=== PATIENT | female | born 1965 | race Caucasian/White ===

== ENCOUNTER 2019-07-22 08:13 | Emergency (ER) | payer BC ==
--- NOTE | 2019-07-22 09:06 | EDM.PDOC ---
ED HPI GENERAL MEDICAL PROBLEM - General Chief Complaint: Laceration Stated Complaint: HEAD LACERATION Time Seen by Provider: 07/22/19 08:15 Source of Information: Reports: Patient History Limitations: Reports: No Limitations - History of Present Illness INITIAL COMMENTS - FREE TEXT/NARRATIVE: Patient presented to the ED because of a facial injury. She went turkey hunting , and the scope of the gone hit her on the forehead and the right eye. She sustained a laceration over the forehead in between the eyebrows. She also has a subconjunctival hemorrhage on the right eye. she denies having any double or blurry vision. 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 (see below) Other Treatments NOISE ABATEMENT ENGINEER: Systane drops right eye Pain Score (Numeric/FACES): 8 - Related Data Allergies Allergy/AdvReac Type Severity Reaction Status Date / Time No Known Allergies Allergy Verified 07/22/19 08:20 Home Meds: Home Meds Hydrocort/Neomycin/Polymyxin B [Cortisporin Ophth Susp] 2 drop OP Q4H #1 bottle 07/22/19 [Rx] Ibuprofen 800 mg PO Q8H PRN #30 tablet 07/22/19 [Rx] cephALEXin [Keflex] 500 mg PO BID #10 cap 07/22/19 [Rx] Past Medical History Endocrine/Metabolic History: Reports: Hypothyroidism Oncologic (Cancer) History: Reports: Breast - Past Surgical History Female Surgical History: Reports: Mastectomy Endocrine Surgical History: Reports: Thyroidectomy Social & Family History - Family History Family Medical History: Noncontributory - Tobacco Use Smoking Status *Q: Never Smoker Second Hand Smoke Exposure: No - Caffeine Use Caffeine Use: Reports: Coffee - Recreational Drug Use Recreational Drug Use: No ED ROS GENERAL - Review of Systems Review Of Systems: See Below Constitutional: Reports: No Symptoms HEENT: Reports: No Symptoms Respiratory: Reports: No Symptoms Cardiovascular: Reports: No Symptoms Endocrine: Reports: No Symptoms GI/Abdominal: Reports: No Symptoms : Reports: No Symptoms Musculoskeletal: Reports: No Symptoms Skin: Reports: Wound Neurological: Reports: No Symptoms ED EXAM, SKIN/RASH Exam: See Below Exam Limited By: No Limitations General Appearance: Alert, No Apparent Distress Eye Exam: Bilateral Eye: PERRL, Other (right subconjunctival hemorrhage) Ears: Normal External Exam Nose: Normal Inspection Throat/Mouth: Normal Inspection, Normal Lips, Normal Teeth Head: Atraumatic, Normocephalic Neck: Normal Inspection, Supple, Non-Tender, Full Range of Motion Respiratory/Chest: No Respiratory Distress, Lungs Clear, Normal Breath Sounds Cardiovascular: Normal Peripheral Pulses, Regular Rate, Rhythm, No Edema GI/Abdominal: Normal Bowel Sounds, Soft, Non-Tender, No Organomegaly Back Exam: Normal Inspection, Full Range of Motion Extremities: Normal Inspection, Normal Range of Motion Neurological: Alert, Oriented, CN II-XII Intact Skin: Warm, Wound/Incision Location, Skin: Face ED SKIN PROCEDURES - Laceration/Wound Repair Middle Face Distal NVT: Neuro & Vascular Intact Local Anesthesia - Lidocaine (Xylocaine): 1% Plain Local Anesthetic Volume: 2cc Skin Prep: Chlorhexidine (Hibiciens), Providone-Iodine (Betadine) Saline Irrigation (cc's): 3 Exploration/Debridement/Repair: Wound Explored Closed with: Sutures Lac/Wound length In cm: 2.5 Suture Size: 4-0 # of Sutures: 4 Suture Type: Interrupted, Other (cutgut-absorbable) Suture Size: 4-0 Repaired with: Chromic # of Sutures: 5 Course - Vital Signs Text/Narrative:: Tdap Last Recorded V/S: Last Vital Signs Temp 36.6 C 07/22/19 09:28 Pulse 75 07/22/19 09:28 Resp 16 07/22/19 09:28 BP 121/54 L 07/22/19 09:28 Pulse Ox 100 07/22/19 09:28 - Orders/Labs/Meds Meds: Medications Discontinued Medications Generic Name Dose Route Start Last Admin Trade Name Freq PRN Reason Stop Dose Admin Diphtheria/Tetanus/Acell Pertussis 0.5 ml 07/22/19 09:00 07/22/19 09:14 Adacel IM 07/22/19 09:01 0.5 ml .ONCE ONE Administration Departure - Departure Time of Disposition: 09:00 Disposition: Home, Self-Care 01 Condition: Good Clinical Impression: Laceration, Eye injury - Discharge Information Prescriptions: cephALEXin [Keflex] 500 mg PO BID #10 cap Hydrocort/Neomycin/Polymyxin B [Cortisporin Ophth Susp] 2 drop OP Q4H #1 bottle Ibuprofen 800 mg PO Q8H PRN #30 tablet PRN Reason: Pain Instructions: Laceration Care, Adult, Subconjunctival Hemorrhage Referrals: Bisi Todd ARNP [Primary Care Provider] - Forms: ED Department Discharge Additional Instructions: please read discharge instructions on laceration and eye injury no need to apply an antibiotic ointment on your wound because you are taking an oral antibiotic cortisporin eye drop, 2 drops to the right eye every 4 hours while awake for 7 days take ibuprofen 800 mg with tylenol 1000 mg every 8hours as needed for pain follow up with the eye doctor this week or on saturday Sepsis Event Note - Evaluation Sepsis Screening Result: No Definite Risk - Focused Exam Date Exam was Performed: 07/23/19 Time Exam was Performed: 12:02
[2019-07-22] MEDS: Diphtheria,Pertussis(Acell),Tetanus Vaccine 0.5 ML SDV IM ONE (09:14)
== END 2019-07-22 09:28 | disposition home or self-care (01) ==
LOC: FB.ED 08:13
DX: S01.81XA Laceration without foreign body of other part of head, initial encounter (principal); H11.31 Conjunctival hemorrhage, right eye; E03.9 Hypothyroidism, unspecified; Z23 Encounter for immunization; W22.8XXA Striking against or struck by other objects, initial encounter
CPT/HCPCS: 12011; 90471; 90715; 99282-25